=== PATIENT | female | born 1955 | race Caucasian/White ===

== ENCOUNTER → 2016-09-04 | Outpatient (CLI) | payer BC | LOC: COL.RAD 12:31 | DX: R19.02 Left upper quadrant abdominal swelling, mass and lump (principal); R10.2 Pelvic and perineal pain; R35.0 Frequency of micturition ==

== ENCOUNTER 2020-10-13 09:51 | Emergency (ER) | payer BC ==
[~2020-10-13] VITALS: Ht 170.2 cm; Wt 73.2 kg
[2020-10-13 09:59] VITALS: TEMP 98.1
[2020-10-13] MEDS ORDERED: ANTIVERT 12.512.5 MG PO (10:40)
[2020-10-13 11:15] VITALS: BP 147/79; PULSE 70
== END 2020-10-13 11:15 | disposition home or self-care (01) ==
LOC: COL.ER 09:51
DX: R51.9 Headache, unspecified (principal); H93.8X1 Other specified disorders of right ear; Z20.822 Contact with and (suspected) exposure to COVID-19